=== PATIENT | male | born 1980 | race Asian ===

== ENCOUNTER 2019-01-20 03:24 | Emergency (ER) | payer OTHER ==
[~2019-01-20] VITALS: Ht 165.1 cm; Wt 83.9 kg
[2019-01-20 03:55] VITALS: BP 139/95
--- NOTE | 2019-01-20 03:55 | NUR ---
ED Nurse Note: Patient alked in to ER from home, c/o blurry and cloudy vision. Pt stated bilateral eye pain. Pt stated he wears contacts, took them off at 2230. AAO x4, VSS at this time, skin is dry warm to touch. Dad is by bed side.
[2019-01-20] MEDS ORDERED: Tetracaine 0.5% Opth 4ml Soln BOTH EYES ONE (04:00)
[2019-01-20] MEDS ORDERED: Fluorescein Strips BOTH EYES ONE (04:00)
[2019-01-20] MEDS ORDERED: Ciprofloxacin Opth Soln 2.5ml BOTH EYES ONE (04:30)
[2019-01-20] MEDS ORDERED: CILOXAN5 ML OP (04:35)
[2019-01-20] MEDS ORDERED: ACETAMINOPHEN-1 EAC1 ORAL (04:35)
--- NOTE | 2019-01-20 04:47 | Emergency Room Report ---
History of Present Illness General Chief Complaint: Eye Problems Source: Patient Present Illness HPI Patient is a 38-year-old male presents after increased bilateral eye foreign body sensation. Patient reports having a prior history of contact lens use. He reports having been wearing his contact lenses for a prolonged period of time. He reports having increased tearing to both eyes as well as increased discomfort. He reports having continued tearing to his as well as a foreign body sensation. He states his eyes have vision has become more blurry.He reports having worsening discomfort with his eyes open. Allergies: Coded Allergies: No Known Allergies (Unverified , 01/20/19) Patient History Past Medical History: see triage record Reviewed Nursing Documentation: PMH: Agreed; PSxH: Agreed Nursing Documentation-PMH Past Medical History: No Stated History Review of Systems All Other Systems: negative except mentioned in HPI Physical Exam Vital Signs Date Time Temp Pulse Resp B/P (MAP) Pulse Ox O2 Delivery O2 Flow Rate FiO2 01/20/19 03:36 98.2 70 17 139/95 (110) 99 Room Air General Appearance: well appearing, no apparent distress, alert, GCS 15 Head: normocephalic, atraumatic Eyes: bilateral eye fluoroscene uptake - right eye with large corneal ulcer, pupils reactive, bilateral eye other ENT: hearing grossly normal, normal voice Neck: full range of motion, supple Respiratory: no respiratory distress, speaking full sentences Musculoskeletal: no calf tenderness Neurologic: normal gait Psychiatric: mood/affect normal Skin: no rash Medical Decision Making Diagnostic Impression: Primary Impression: Corneal ulcer of right eye Additional Impression: Corneal ulcer of left eye ER Course Patient presented for bilateral eye discomfort. Differential diagnosis include was not limited to foreign body, corneal ulcer, corneal abrasion among others. Patient has a benign exam and does not appear to require any imaging or laboratory testing at this time. Patient appears to have bilateral ulcers which are likely related to contact lens use. Patient was given topical antibiotic prescription. 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 He was advised to follow-up with ophthalmology for recheck in 1 to 2 days. Patient is to return if any worse. Last Vital Signs Date Time Temp Pulse Resp B/P (MAP) Pulse Ox O2 Delivery O2 Flow Rate FiO2 01/20/19 03:55 98.2 17 139/95 99 Room Air 01/20/19 03:36 70 Disposition: HOME, SELF-CARE Condition: Stable Scripts Ciprofloxacin HCl (Ciloxan) 5 Ml Drops 5 ML OP EVERY 4 HOURS, #5 ML Prov: Wagner Pelaez MD 01/20/19 Acetaminophen With Codeine (T#3) (TYLENOL #3 TAB*) Y Tab 1 TAB ORAL Q8H PRN for For Pain, #20 TAB Prov: Wagner Pelaez MD 01/20/19 Patient Instructions: Corneal Ulcer Additional Instructions: Follow up with opthalmology today. Wagner Pelaez MD Jan 20, 2019 04:47
[2019-01-20 05:05] VITALS: BP 139/95
--- NOTE | 2019-01-20 05:06 | NUR ---
ED Nurse Note: Pt cleared by health care Provider for discharge. DC instructions/prescription was given and explained to pt and verbalized understanding of teachings. All medical deviecs such as ID band removed. Pt is AAO x4, ambulatory and left with all personal belongings.
== END 2019-01-20 05:06 | disposition home or self-care (01) ==
LOC: EMR 04:00
DX: H16.003 Unspecified corneal ulcer, bilateral (principal)
CPT/HCPCS: 99282